=== PATIENT | female | born 1945 | race African-American/Black ===

== ENCOUNTER 2023-11-04 06:44 | Observation (INO) | payer MEDICARE ==
[2023-11-04 08:25] LABS: #Basophils 0.03 10x3/uL (0.0-0.2); %Basophils 0.5 % (0.0-1.0); %Eosinophils 10.5 % (0.0-10.0); %Lymphocytes 13.5 % (21.0-51.0); %Monocytes 12.9 % (0.0-10.0); %Neutrophils 61.7 % (42.0-75.0); Hematocrit 23.9 % (36.0-47.0); Hemoglobin 7.2 g/dL (12.0-16.0); Mean Corpuscular HGB CONC 30.1 g/dL (32.0-36.0); Mean Corpuscular Hemoglobin 23.2 pg (27.0-31.0); Mean Corpuscular Volume 76.8 fL (78.0-98.0); Platelet Count 257 10x3/uL (130-400); RBC Distribution Width 22.1 % (11.5-14.5); Red Blood Cell (RBC) Count 3.11 mill/uL (4.20-5.40)
[2023-11-04 08:31] LABS: Globulin 3.3 g/dL (2.4-3.5)
[2023-11-04 08:35] LABS: ALT (SGPT) 7 U/L (8-55); AST (SGOT) 12 U/L (5-34); Albumin 2.8 g/dL (3.4-4.8); Alkaline Phosphatase 95 U/L (40-110); Anion Gap 15 mmol/L (10-20); BUN (Urea Nitrogen) 15 mg/dL (9.8-20.1); Bilirubin, Total 0.5 mg/dL (0.2-1.2); Calc. Creatinine Clearance 0 mL/min (70-130); Calcium 9.1 mg/dL (7.8-10.44); Carbon Dioxide 26 mmol/L (23-31); Chloride 101 mmol/L (98-107); Estimated GFR 10; Glucose 80 mg/dL (83-110); Potassium 4.1 mmol/L (3.5-5.1); Protein, Total 6.1 g/dL (5.8-8.1); Sodium 138 mmol/L (136-145)
[2023-11-04] MEDS ORDERED: Acetaminophen 325 MG TAB PO PRN (11:46)
[2023-11-04] MEDS ORDERED: Ondansetron PF 4 MG/2 ML Vial IVP PRN (11:46)
[2023-11-04] MEDS ORDERED: traMADol HCl 50 MG TAB PO PRN (11:46)
[2023-11-04] MEDS ORDERED: Glucagon 1 MG/ML KIT IM PRN (11:54)
[2023-11-04] MEDS ORDERED: Dextrose 5% in Water 1,000 ML IV PRN (11:54)
[2023-11-04] MEDS ORDERED: HumaLOG 300 UNITS/3 ML VIAL SC PRN (11:54)
[2023-11-04] MEDS ORDERED: Dextrose 50% Abboject 50 ML SYRINGE SLOW IVP PRN (11:54)
[2023-11-04 12:05] VITALS: BMI 15.8
[2023-11-04] MEDS: EPOETIN ALFA-EPBX (ESRD) 10,000 UNITS/ML VIAL IVP SCH (17:32)
[2023-11-04] MEDS: hydrALAZINE 20 MG/ML VIAL SLOW IVP PRN (22:45)
[2023-11-05 06:59] LABS: Anion Gap 14 mmol/L (10-20); BUN (Urea Nitrogen) 11 mg/dL (9.8-20.1); Calc. Creatinine Clearance 9 mL/min (70-130); Calcium 8.9 mg/dL (7.8-10.44); Carbon Dioxide 29 mmol/L (23-31); Chloride 101 mmol/L (98-107); Estimated GFR 14; Glucose 89 mg/dL (83-110); Potassium 3.7 mmol/L (3.5-5.1); Sodium 140 mmol/L (136-145)
[2023-11-05 07:23] LABS: Hematocrit 26.2 % (36.0-47.0); Hemoglobin 8.7 g/dL (12.0-16.0); Mean Corpuscular HGB CONC 33.2 g/dL (32.0-36.0); Mean Corpuscular Volume 72.2 fL (78.0-98.0); Platelet Count 250 10x3/uL (130-400); Red Blood Cell (RBC) Count 3.63 mill/uL (4.20-5.40)
[2023-11-05 08:15] LABS: Anisocytosis MARKED = >30 cells HPF (0-5); Eosinophils 7 % (0-10); Hypochromia SLIGHT = 6-15 cells HPF (0-5); Large Platelets 4.9 % (0-5); Lymphocytes 10 % (21-51); Monocytes 7 % (0-10); Neutrophil 76 % (42-75); Platelet Adequacy Comment Platelets Normal; Poikilocytosis SLIGHT = 6-15 cells HPF (0-5); Polychromasia MODERATE = 3-4 cells HPF (0-2); Schistocytes SLIGHT = 2-5 cells HPF (0-1); Target Cells SLIGHT = 2-5 cells HPF (0-1)
[2023-11-05 08:46] VITALS: TEMP 99.8
[2023-11-05] MEDS: Sevelamer Carbonate 800 MG TAB PO SCH (09:13)
[2023-11-05] MEDS: Allopurinol 100 MG TAB PO SCH (09:13)
[2023-11-05] MEDS: NIFEdipine XL 60 MG ER.TAB PO SCH (09:13)
[2023-11-05 13:26] VITALS: BMI 15.8
[2023-11-05 15:07] VITALS: BP 162/52
== END 2023-11-05 15:11 | disposition home or self-care (01) ==
LOC: ERS 06:44 → T4-A 10:38
PROVIDERS: ADMIT Internal Medicine; ATTEND Internal Medicine
DX: R53.1 Weakness (principal); I12.0 Hypertensive chronic kidney disease with stage 5 chronic kidney disease or end stage renal disease; N18.6 End stage renal disease; R53.83 Other fatigue; E11.22 Type 2 diabetes mellitus with diabetic chronic kidney disease; E78.5 Hyperlipidemia, unspecified; Z99.2 Dependence on renal dialysis; D63.1 Anemia in chronic kidney disease; E11.40 Type 2 diabetes mellitus with diabetic neuropathy, unspecified; S30.1XXA Contusion of abdominal wall, initial encounter; R60.0 Localized edema; K80.60 Calculus of gallbladder and bile duct with cholecystitis, unspecified, without obstruction; Z79.4 Long term (current) use of insulin; Z79.899 Other long term (current) drug therapy
CPT/HCPCS: 36430; 80048; 80053; 82962 ×2; 83605; 85025 ×2; 86850; 86900; 86901; 86920; 96375; 99285; G0378 ×3; J0360; P9016; Q5105; 36415; 36416; 90935; G0257